=== PATIENT | male | born 1990 | race Caucasian/White ===

== ENCOUNTER → 2020-11-10 | Outpatient (CLI) | payer BC ==
[~2020-11-10] MED LIST: ATIVAN1 MG PO; AUGMENTIN 875 M1 TAB PO; IBU-8800 MG PO; IMITREX50 MG PO; MOTRIN800 MG PO; REGLAN10 M1 PO; SEPTRA DS 800 M1 TAB PO; ZOFRAN ODT4 MG SL
== END | disposition home or self-care (01) ==
LOC: COVID19 15:44
PROVIDERS: ATTEND Internal Medicine
DX: Z20.828 Contact with and (suspected) exposure to other viral communicable diseases (principal)

== ENCOUNTER 2022-05-17 13:51 | Emergency (ER) | payer SELFPAY ==
[~2022-05-17] VITALS: Ht 182.8 cm; Wt 81.6 kg
[2022-05-17 13:59] VITALS: BP 145/85
[2022-05-17] MEDS ORDERED: SEPTDS PO ×3 (14:12→14:31)
[2022-05-17] MEDS ORDERED: CEPHALEXIN500 M1 PO ×3 (14:12→14:31)
== END 2022-05-17 14:35 | disposition home or self-care (01) ==
LOC: ED 13:51
DX: K61.0 Anal abscess (principal)

== ENCOUNTER 2022-09-26 10:33 | Emergency (ER) | payer SELFPAY ==
[~2022-09-26] VITALS: Ht 185.4 cm; Wt 90.7 kg
[~2022-09-26 10:33] MED LIST changes: +CEPHALEXIN500 M1 PO; +SEPTDS PO
[2022-09-26 10:45] VITALS: BP 159/93
[2022-09-26] MEDS ORDERED: MEDROL DOSEPAK4 MG PO (12:16)
[2022-09-26] MEDS ORDERED: CYCLOBENZAPRINE5 M3 PO (12:17)
[2022-09-26] MEDS ORDERED: Motrin,Rufen800 MG PO (12:17)
== END 2022-09-26 12:10 | disposition home or self-care (01) ==
LOC: ED 10:33
DX: M54.16 Radiculopathy, lumbar region (principal); F17.200 Nicotine dependence, unspecified, uncomplicated

== ENCOUNTER → 2024-01-19 | Outpatient (CLI) | payer BC ==
[~2024-01-19] MED LIST changes: +CYCLOBENZAPRINE5 M3 PO; +MEDROL DOSEPAK4 MG PO; +Motrin,Rufen800 MG PO
== END | disposition home or self-care (01) ==
LOC: RAD 10:37
PROVIDERS: ATTEND Family Medicine
DX: M48.07 Spinal stenosis, lumbosacral region (principal); M41.85 Other forms of scoliosis, thoracolumbar region